=== PATIENT | female | born 1960 | race Caucasian/White ===

== ENCOUNTER 2017-04-24 07:03 | Emergency (ER) | payer BC ==
--- NOTE | 2017-04-24 07:47 | UC ---
Abdominal Pain Female HPI - HPI Summary HPI Summary: 56 yo NA femalec/o LLQ/groin pain x3 days associated with mild nausea, chills and constipation. Took stool softener 3 days ago and has been having loose stools since then. Last colo was 3 yrs ago and another one 25 yrs ago which showed diverticulosis. - History of Current Complaint Chief Complaint: UCAbdominalPain Stated Complaint: LOWER ABD PAIN Time Seen by Provider: 04/24/17 07:23 Hx Obtained From: Patient Onset/Duration: Gradual Onset, Lasting Days Severity Initially: Moderate Severity Currently: Moderate Pain Intensity: 5 Allergies/Adverse Reactions: Allergies Allergy/AdvReac Type Severity Reaction Status Date / Time fluticasone Allergy Vomiting Verified 04/24/17 07:12 [From Advair Diskus] salmeterol Allergy Vomiting Verified 04/24/17 07:12 [From Advair Diskus] PMH/Surg Hx/FS Hx/Imm Hx Previously Healthy: Yes - Surgical History Surgical History: Yes Surgery Procedure, Year, and Place: hysterectomy. andi. tonsilectomy. elbow surgery. D&C - Social History Alcohol Use: None Substance Use Type: None Smoking Status (MU): Never Smoked Tobacco Review of Systems Constitutional: Chills Skin: Negative Eyes: Negative ENT: Negative Respiratory: Negative Cardiovascular: Negative Gastrointestinal: Negative Genitourinary: Hematuria, Other - suprapubic pain Motor: Negative Neurovascular: Negative Musculoskeletal: Negative Neurological: Negative Psychological: Negative Is Patient Immunocompromised?: No All Other Systems Reviewed And Are Negative: Yes Physical Exam Triage Information Reviewed: Yes Appearance: Obese Vital Signs: Initial Vital Signs Temp 36.6 C 04/24/17 07:10 Pulse 96 04/24/17 07:10 Resp 18 04/24/17 07:10 BP 127/62 04/24/17 07:10 Pulse Ox 96 04/24/17 07:10 Eye Exam: Normal ENT Exam: Normal Dental Exam: Normal Neck exam: Normal Neck: Positive: 1 Respiratory Exam: Normal Cardiovascular Exam: Normal Abdomen Description: Positive: Soft, Other: - LLQ, lower quadrant, suprapubic and left groin pain Musculoskeletal Exam: Normal Neurological Exam: Normal Psychological Exam: Normal Skin Exam: Normal Abd Pain Female Course/Dx - Course Course Of Treatment: UA positive for nitrites and blood, will tx for cystitis, also in the ddx is diverticulitis but will tx cystitis with abx x 1 week and go for [address] if pain persists or worsens evem before abx course is over - Differential Dx/Diagnosis Differential Diagnosis: Bowel Obstruction, Constipation, Diverticulitis, Renal Colic, Urinary Tract Infection, Other - severe constipation Provider Diagnoses: Acute cystitis Discharge - Discharge Plan Condition: Stable Disposition: HOME Prescriptions: Sulfamethox/Trimethoprim DS* [Bactrim DS 800/160 TAB*] 1 tab PO BID 7 Days #4 tab Patient Education Materials: Urinary Tract Infection in Women (DC) Referrals: Rony Rocha MD [Primary Care Provider] - Additional Instructions: activity as tolerated,Go to ER if sx worsen in spite of antibiotics
[2017-04-24] MEDS ORDERED: cefTRIAXone VIAL(*) 1,000 MG VIAL IM ONE (08:38)
[2017-04-24] MEDS ORDERED: Lidocaine 1% INJ* 10 MG/ML 30 ML SDV INJ ONE (08:54)
[2017-04-24] MEDS ORDERED: Lidocaine 1% MPF* 2 ML VIAL INJ ONE (08:59)
[2017-04-24 09:27] VITALS: BP 124/70
--- NOTE | 2017-04-25 16:20 | UC ---
- Progress Note Progress Note: call patient and see how she is feeling---if sx continue have her get rechecked as patient does not have UTI by urine culture
== END 2017-04-24 09:30 | disposition home or self-care (01) ==
LOC: UCEAST 07:03
DX: N30.01 Acute cystitis with hematuria (principal); Z90.710 Acquired absence of both cervix and uterus; Z90.49 Acquired absence of other specified parts of digestive tract
CPT/HCPCS: 81003; 87086; 96372; 99202; G0463; J0696